=== PATIENT | male | born 1950 | race Caucasian/White ===

== ENCOUNTER 2022-03-21 12:43 | Observation (INO) | payer MEDICARE, SELFPAY ==
[2022-03-21] VITALS (9 sets, daily range): BP systolic 126–141; BP diastolic 63–92; PULSE 58–92; RESP 16–18; TEMP 36–36.4; O2SAT 96–100; BMI 29.5; BMI 25.9; BMI 27.2
--- NOTE | 2022-03-21 13:04 | NURSING ---
STROKE ALERT CALLED
--- NOTE | 2022-03-21 13:07 | CT_ITS ---
We are attempting to reach an attending provider to discuss findings. An addendum with communication details will be sent when the communication is complete. STUDY: CT HEAD STROKE PROTOCOL W/O CONTRAST INJECTION REASON FOR EXAM: Male, 71 years old. Neuro deficit, acute, stroke suspected RADIATION DOSAGE (If Supplied By Facility): CTDIvol = ( ) mGy, DLP = ( ) mGycm TECHNIQUE: Transaxial CT imaging of the brain was performed without administration of intravenous contrast material. Individualized dose optimization techniques were used for this CT. COMPARISON: No relevant priors. FINDINGS: Normal soft tissue structures. Normal calvarium. There is mild cerebral atrophy with widening of the extra-axial spaces and ventricular dilatation. There are areas of decreased attenuation within the white matter tracts of the supratentorial brain, consistent with microvascular disease changes. Normal basal ganglia and thalami. Normal brainstem. Normal cerebellum. There is no intracranial hemorrhage. There are no findings of an acute ischemic infarction. Normal visualized paranasal sinuses. ASPECT score: CT/STROKE Brain/Head without Cont IMPRESSION: Chronic involutional changes of the brain. Electronically Signed: Wyatt Lynch MD at 13:22 EDT ,
--- NOTE | 2022-03-21 13:07 | EKG12_ITS ---
Test Reason : dizziness Blood Pressure : / mmHG Vent. Rate : 080 BPM Atrial Rate : 080 BPM P-R Int : 170 ms QRS Dur : 080 ms QT Int : 368 ms P-R-T Axes : 053 -06 036 degrees QTc Int : 424 ms Normal sinus rhythm Nonspecific ST abnormality Abnormal ECG Confirmed by ALLISON ANDERSON, ELVIE ([id number]), marketing editor FEROZ GAN ([id number]) on 03/23/2022 9:39:45 AM Referred By: Domingo Confirmed By:ELVIE COOPER MD
--- NOTE | 2022-03-21 13:08 | CT_ITS ---
We are attempting to reach an attending provider to discuss findings. An addendum with communication details will be sent when the communication is complete. STUDY: CTA HEAD AND NECK WITH CONTRAST REASON FOR EXAM: Male, 71 years old. Neuro deficit, acute, stroke suspected RADIATION DOSAGE (If Supplied By Facility): CTDIvol = ( 26.29 ) mGy, DLP = ( 749.46 ) mGycm TECHNIQUE: CT angiography was performed with a multi-detector CT scanner. Data acquisition was obtained from the skull base through the vertex following intravenous administration of IV 100mL [id number]-[id number]. MIP images were reconstructed from the axial data set. Post-processing of the angiographic images was performed, with multiplanar reformation and 3D reconstruction. Individualized dose optimization techniques were used for this CT. COMPARISON: No relevant priors. FINDINGS: Normal bilateral petrous carotid arteries. There is calcified plaque formation of the right cavernous carotid artery, without a cross-sectional luminal stenosis. There is calcified plaque formation of the left cavernous carotid artery, without a cross-sectional luminal stenosis. Normal right A1 segments of the anterior cerebral artery. Normal left A1 segments of the anterior cerebral artery. Normal intact anterior communicating artery (ACOM). Normal bilateral A2 segments of the anterior cerebral arteries. Normal right M1 and M2 segments of the middle cerebral arteries, with a normal M1 bifurcation. Normal left M1 and M2 segments of the middle cerebral arteries, with a normal M1 bifurcation. Normal right posterior communicating artery (PCOM). Normal left posterior communicating artery (PCOM). Normal bilateral vertebral arteries. Normal basilar artery with a normal basilar bifurcation. The visualized bilateral superior cerebellar (SCA) arteries are normal. Normal bilateral P1, P2 and visualized P3 segments of the posterior cerebral arteries. There is no demonstrated aneurysm of the [place]. There is no demonstrated abnormality of the visualized brain. AORTIC ARCH: There is a bovine origin of the great vessels arising from the aortic arch with a common origin of the brachiocephalic and left common carotid artery. Normal origin of the left subclavian artery. Normal origins of the brachiocephalic, left common carotid, and left subclavian arteries. RIGHT CAROTID ARTERIES: Normal right common carotid artery (CCA). There is mild atherosclerotic plaque formation with minimal narrowing of the right carotid bulb. There is mild atherosclerotic plaque formation of the origin of the right internal carotid artery with less than 50% cross sectional diameter stenosis. There is atherosclerotic tortuous elongation of the cervical portion of the right internal carotid artery. Normal origin of the right external carotid artery (ECA). LEFT CAROTID ARTERIES: Normal left common carotid artery (CCA). Normal left common carotid bulb. Normal origin of the left internal carotid (ICA) artery without a hemodynamically significant stenosis. There is atherosclerotic tortuous elongation of the cervical portion of the left internal carotid artery. Normal origin of the left external carotid artery (ECA). VERTEBRAL ARTERIES: Normal bilateral vertebral arteries. CT/STROKE CTA Head AND Neck W/Con IMPRESSION: 1. Normal CTA Head with contrast. 2. Mild (40%) right carotid stenosis. 3. The left carotid stenosis. 4. Patent vertebral arteries bilaterally. 5. Bovine arch. Electronically Signed: Wyatt Lynch MD at 14:05 EDT ,
[2022-03-21 13:10] LABS: Bedside Glucose 125 mg/dL (74-106)
--- NOTE | 2022-03-21 13:11 | ED.VIS.STROK ---
HPI History of Present Illness Chief Complaint: Dizziness Detail of Chief Complaint: Vertigo, nausea vomiting and photophobia Informant: patient and friend Onset/Context/Timing Onset: Hours (Onset approxi-1/2-hour prior to presentation, 1230) Context: Sudden Onset Timing: Continuous Quality and Location: Positive for Difficulty with Ambulation Onset: 1230 Current Severity: Moderate Maximum Severity: Severe Worsened by: Photophobia Relieved by: Nothing Associated Symptoms Associated Symptoms: Positive for Headache, Nausea and Vomiting; Negative for Chest Pain Narrative Narrative: Patient is a 71-year-old man who presents with abrupt onset of vertigo. He became diaphoretic. He had nausea and vomiting. It is not positional. He denies double vision or loss of vision. He states his vision is not normal. He was golfing when this occurred. He did have 2 drinks. He states he normally has 2 drinks while golfing. He does report mild headache. He states he has difficulty walking and cannot walk a straight line. He does have history of hypertension. He denies history of TIA or CVA. He denies chest pain or shortness of breath. He denies any other symptoms. There is no recent trauma. Prior similar symptoms: No Recent Illness/Hospitalization: No PFSH PFSH Home Medications lisinopril 10 mg tablet 10 mg PO DAILY 03/21/22 [History Last Taken Unknown] Allergy/AdvReac Type Severity Reaction Status Date / Time No Known Allergies Allergy Verified 03/21/22 12:45 Social History (Updated 03/21/22 @ 13:[address] Rob [address] MD) household members: other Smoking Status: Never smoker alcohol intake: current substance use type: does not use ROS ROS ED Constitutional Constitutional ED: Denies chills, fever(s), subjective or sweats Eyes Eyes: Reports change in vision and other Details: He does complain of photophobia. ; Denies blurry vision or diplopia ENT ENT ED: Reports other Details: He denies ringing in his ears. ; Denies ear pain, rhinorrhea or sore throat Cardiovascular Cardiovascular: Denies chest pain or palpitations Respiratory/Chest Respiratory/Chest: Denies cough, dyspnea or dyspnea on exertion Gastrointestinal Gastrointestinal: Reports nausea and vomiting; Denies abdominal pain, diarrhea or melena Genitourinary Genitourinary ED: Denies dysuria, hematuria or urinary frequency Musculoskeletal Musculoskeletal: Denies arthralgias, back pain, myalgias or neck pain Integumentary Denies Abrasions or rash Neurologic Neurologic: Reports headache(s) and other Details: Difficulty walking and vertigo ; Denies paresthesias or weakness Psychiatric Psychiatric: Denies anxiety or depression Endocrine Endocrinology: Denies polydipsia, polyphagia or polyuria Hematologic/Lymphatic Hematologic/Lymphatic: Denies easy bleeding or easy bruising EXAM Physical Exam Const Vital Signs: 03/21/22 12:45 03/21/22 12:52 03/21/22 13:07 Temperature 96.8 F L Temperature Source Temporal Pulse Rate 92 Respiratory Rate 18 Respiratory Effort Short of Breath Respiratory Pattern Tachypnea Blood Pressure 137/92 H Blood Pressure Mean 107 Pulse Ox 96 Oxygen Delivery Method Room Air Room Air Positive well nourished and well developed Constitutional Narrative: Patient is diaphoretic. He does not appear well. He does appear pale. General Appearance ED: well developed HEENT Reports TM's clear and moist mucous membranes atraumatic and trauma Tympanic Membrane ED: Yes TM's clear Eyes PERRL and EOMs intact bilaterally Eyes Narrative: There is nystagmus with central gaze. General Eye ED: Negative for pale conjunctiva or scleral icterus Neck no lymphadenopathy, supple and no JVD Neck Narrative: There is no carotid bruit. Chest Wall inspection of chest normal and palpation of chest normal Resp normal respiratory effort and clear to auscultation bilaterally Cardio no murmurs Rate: regular rate Rhythm: regular rhythm Heart Sounds: S1 normal and S2 normal GI normal to inspection, nondistended, normoactive bowel sounds, soft to palpation, non-tender, non-distended and no masses Back/Spine no CVA tenderness Cervical Spine: Negative for cervical spine tenderness Thoracic Spine / Upper Back: Negative for thoracic spinal tenderness Lumbar Spine / Lower Back: Negative for lumbar spinal tenderness Extremity normal to inspection Neuro oriented x3, CN's II-XII intact bilaterally and no sensory deficits noted [place] Coma Scale: document GCS findings Spontaneous Obeys Commands Oriented 15 Sensorium / Orientation: alert Speech: speech normal Gait (Neuro): Negative for normal gait Motor Exam: strength 5/5 throughout Psych mental status grossly normal Skin Skin Narrative: Patient peers pale and he is diaphoretic. General Skin Exam: Negative for jaundice Lesions: no lesions Rashes: no rashes STROKE Vital Signs/Narrative: Vital Signs Temp Pulse Resp BP Pulse Ox O2 Del Method 03/21/22 13:07 Room Air 03/21/22 12:45 96.8 F L 92 18 137/92 H 96 Room Air Inital Vital Signs reviewed: Yes NIHSS Initial: 1a Level of Consciousness: 0 1b LOC Questions (Score 2 if aphasic/stupor): 0 1c LOC Commands (Only score 1st attempt): 0 2 Best Gaze (If aphasic, use reflexive mvmts.): 0 3 Visual: 0 4 Facial Palsy: 0 5 Motor Arm Right (UN = amputation/fusion): 0 5 Motor Arm Left: 0 6 Motor Leg Right: 0 6 Motor Leg Left: 0 7 Limb ataxia (Only + if out of proportion): 0 8 Sensory (Aphasia/stupor=0 or 1, coma=2): 0 9 Best Language: 0 10 Dysarthria (mute, coma=2, intubated=UN): 0 11 Extinction and Inattention (only scored if +): 0 Total Score: 0 MDM MDM MDM Narrative Medical decision making narrative: With persistent vertigo for 30 minutes and the fact that is nonpositional need to evaluate for vertebrobasilar insufficiency, stroke or dissection. CT of the head with and without contrast was ordered as well as CT of the neck. Stroke order set was initiated. Lab Data Attestation: I reviewed the patient's lab results. Labs: Laboratory Results - last 24 hr 03/21/22 03/21/22 03/21/22 12:50 13:00 13:00 WBC 4.9 RBC 5.00 Hgb 16.4 Hct 45.2 MCV 90.4 MCH 32.8 H MCHC 36.3 H RDW Std Deviation 39.3 RDW Coeff of Mara 11.9 Plt Count 185 MPV 9.4 Immature Gran % (Auto) 0.200 Neut % (Auto) 64.8 Lymph % (Auto) 23.9 [place] % (Auto) 8.9 Eos % (Auto) 1.8 Baso % (Auto) 0.4 Absolute Neuts (auto) 3.2 Absolute Lymphs (auto) 1.18 Nucleated RBC % 0 PT 12.3 INR 0.9 APTT 27.9 Sodium Potassium Chloride Carbon Dioxide Anion Gap BUN Creatinine Estim Creat Clear Calc Est GFR (MDRD) Af Amer Est GFR (MDRD) Non-Af BUN/Creatinine Ratio Glucose Calcium Troponin I High Sens POC Glucose 125 H 03/21/22 13:00 WBC RBC Hgb Hct MCV MCH MCHC RDW Std Deviation RDW Coeff of Mara Plt Count MPV Immature Gran % (Auto) Neut % (Auto) Lymph % (Auto) [place] % (Auto) Eos % (Auto) Baso % (Auto) Absolute Neuts (auto) Absolute Lymphs (auto) Nucleated RBC % PT INR APTT Sodium 137 Potassium 4.0 Chloride 107 Carbon Dioxide 21.0 Anion Gap 9 BUN 13 Creatinine 0.81 Estim Creat Clear Calc 79.75 Est GFR (MDRD) Af Amer 120 Est GFR (MDRD) Non-Af 100 BUN/Creatinine Ratio 16.0 Glucose 118 H Calcium 9.5 Troponin I High Sens 4 POC Glucose Radiography Diagnostic Testing: Clinical Impression(s) from Imaging Studies Brain CT 03/21/22 13:07 IMPRESSION: Chronic involutional changes of the brain. Electronically Signed: Wyatt Lynch MD at 13:22 EDT , Discussed CT and CTA of head and neck with neurologist at [facility]. There is no acute pathology. Patient needs work-up for stroke. Neurologist from [facility] does not feel comfortable administering tPA. I agree since patient has a score of 0 for me and apparently a low score for the radiologist. Stroke Documentation Questions Stroke Team Activated: Yes Reviewed Inclusion/Exclusion criteria: Yes Was Patient considered for Endovascular Intervention?: No-CTA negative, determined not to be an endovascular candidate IV Alteplase (t-PA) Administered: No No contraindications for IV Alteplase (t-PA) administration.: Yes Alteplase (t-PA) risks, benefits, alternative discussed: No Critical Care Time Critical Care Time: Yes Critical care time (excluding procedures): 30-74 minutes (23), Including time spent: (History, physical, documentation, review of prior records), Discussing w/Patient &/or Family/Electronics Parts Sales Representative, Discussing w/Consultants (Radiologist and neurologist from [facility] and [facility] respectively) and Arranging Admission or Transfer (Dr. Cortes the hospitalist) Discharge Plan Triage Chief Complaint: Dizziness Other Complaint: Nausea/Vomiting ED Provider: Rob Lane Dx/Rx/DC Orders Clinical Impression: Vertigo, Nystagmus, History of primary hypertension Prescriptions: No Action lisinopril 10 mg Tablet 10 mg PO DAILY Primary Care Provider: NOT,DEFINED Referrals: NOT,DEFINED [Primary Care Provider] - Disposition Disposition: Acute Care Hospital [facility]
--- NOTE | 2022-03-21 13:14 | NURSING ---
NO OLD EKGS
[2022-03-21 13:15] LABS: Absolute Lymphocyte Count 1.18 X10^3/uL (0.83-4.51); Absolute Neutrophil Count 3.2 X10^3/uL (2.0-7.7); Basophil# 0.02 X10^3/uL; Basophil% 0.4 % (0-1); Eosinophil# 0.09 X10^3/uL; Eosinophils% 1.8 % (0-5); Hematocrit 45.2 % (40-54); Hemoglobin 16.4 g/dL (13.0-16.5); Lymphocyte # 1.18 X10^3/ul (0.83-4.51); Lymphocyte % 23.9 % (19-41); Mean Corp Hgb Conc 36.3 g/dL (32-36); Mean Corpuscular Hgb 32.8 pg (27.0-32.0); Mean Corpuscular Volume 90.4 fL (80-94); Mean Platelet Vol. 9.4 fl (6.2-12.0); Monocyte# 0.44 X10^3/uL; Monocyte% 8.9 % (0-10); NRBC Flagged by Analyzer 0 % (0-5); Neutrophil # 3.19 X10^3/uL (2.7-7.7); Neutrophil % 64.8 % (47-70); Platelet Count 185 K/mm3 (150-450); RBC Distribution Width CV 11.9 % (11.6-14.6); RBC Distribution Width SD 39.3 fl (35.1-43.9); White Blood Count 4.9 K/mm3 (4.4-11.0)
[2022-03-21 13:19] LABS: International Normalized Ratio 0.9; Prothrombin Time (Protime)PT. 12.3 SECONDS (11.7-14.9)
[2022-03-21 13:20] LABS: Partial Thromboplast Time 27.9 Seconds (24.1-36.2)
[2022-03-21] MEDS: Ondansetron 4 MG/2 ML Vial IV (13:22)
[2022-03-21 13:33] LABS: Anion Gap 9 (5-15); BUN 13 mg/dL (7-18); Calcium,Total 9.5 mg/dL (8.5-10.1); Chloride 107 mmol/L (98-107); Creatinine, Serum 0.81 mg/dL (0.70-1.30); EST Glomerular Filtration Rate 100 mL/min (>60); Est Glom Filt Rate - Afr Amer 120 mL/min (>60); Estimated Creatinine Clearance 79.75 ml/min; Glucose 118 mg/dL (74-106); Sodium Level 137 mmol/L (136-145); Troponin-I HS 4 pg/mL (3.0-78.0)
--- NOTE | 2022-03-21 13:49 | NURSING ---
PCU FRANCES VERTIGO, NYSTAGMUS, HX OF HYPERTENSION
--- NOTE | 2022-03-21 14:06 | ECHOD_ITS ---
Reason For Study: TIA/CVA Procedure This was a 2D Doppler, Color Flow transthoracic echocardiogram. The exam was of adequate technical quality. Exam performed portable in patient room. Left Ventricle Normal LV size. Apical false tendon noted. Left ventricular systolic function is normal. The estimated ejection fraction is 65 %. No evidence for diastolic dysfunction. No regional wall motion abnormalities noted. Right Ventricle Normal RV size. Normal systolic function. Atria Normal left atrium. Normal right atrium. No doppler evidence for ASD. Bubble contrast study negative for right to left interatrial shunt. Mitral Valve There is mild mitral annular calcification. Extension of the mitral annular calcification onto the base of the posterior mitral valve leaflet. Trivial mitral valve insufficiency. Tricuspid Valve Normal tricuspid valve. Trivial tricuspid valve insufficiency. Right ventricular systolic pressure estimated to be 24 mmHg. Aortic Valve Trisinus/trileaflet aortic valve. Moderate focal aortic valve calcification. Pulmonic Valve The pulmonic valve is not well visualized. Great Vessels Normal sized aortic root. Pericardium/Pleural No pericardial effusion. Medication Performed a rapid injection of agitated mix of 9 cc saline and 1cc air to assess for atrial septal defect. MMode/2D Measurements & Calculations LVIDd: 4.8 cm IVSd: 1.2 cm Ao root diam: 3.4 cm LVIDs: 2.5 cm LVPWd: 0.98 cm RVDd: 3.7 cm FS: 48.3 % LAV(MOD-sp2): 56.5 ml LVAd ap4: 23.6 cm2 LVAd ap2: 28.7 cm2 LVLd ap4: 7.0 cm LVLd ap2: 8.3 cm EDV(MOD-sp4): 64.5 ml EDV(MOD-sp2): 81.9 ml EDV(sp4-el): 67.3 ml EDV(sp2-el): 84.5 ml LVAs ap4: 13.9 cm2 LVAs ap2: 14.2 cm2 LVLs ap4: 6.8 cm LVLs ap2: 7.0 cm ESV(MOD-sp4): 25.0 ml ESV(MOD-sp2): 24.6 ml ESV(sp4-el): 24.1 ml ESV(sp2-el): 24.5 ml EF(MOD-sp4): 61.2 % EF(MOD-sp2): 70.0 % EF(sp4-el): 64.2 % SV(MOD-sp4): 39.5 ml SV(MOD-sp2): 57.3 ml SV(sp4-el): 43.2 ml LA A4 area: 19.0 cm2 LA dimension(2D): 4.9 cm RA A4 area: 14.8 cm2 Time Measurements MV dec time: 0.23 sec Doppler Measurements & Calculations MV E max king: 73.7 cm/sec Lat Peak E' King: 9.9 cm/sec Med Peak E' King: 6.9 cm/sec MV A max king: 75.9 cm/sec E/E' lat: 7.5 E/E' med: 10.7 MV E/A: 0.97 Ao V2 max: 158.4 cm/sec LV V1 max: 123.4 cm/sec MV dec slope: 317.7 cm/sec2 Ao max P.0 mmHg LV V1 max P.1 mmHg Ao V2 mean: 108.7 cm/sec LV V1 mean P.4 mmHg Ao mean P.4 mmHg LV V1 mean: 86.1 cm/sec Ao V2 VTI: 38.5 cm LV V1 VTI: 30.6 cm PA V2 max: 78.9 cm/sec TR max king: 228.1 cm/sec TR max P.1 mmHg ECHO/Echo Complete Interpretation Summary Left ventricular systolic function is normal. The estimated ejection fraction is 65 %. Apical false tendon noted. There is mild mitral annular calcification. Extension of the mitral annular calcification onto the base of the posterior mi tral valve leaflet. Trivial mitral valve insufficiency. Trivial tricuspid valve insufficiency. Moderate focal aortic valve calcification. Right ventricular systolic pressure estimated to be 24 mmHg. No evidence for diastolic dysfunction. Bubble contrast study negative for right to left interatrial shunt. Ordering Physician: Raven Cortes Performed By: Brittney Mcmanus RDCS
--- NOTE | 2022-03-21 14:06 | MRI_ITS ---
EXAM: MR HEAD WITHOUT INTRAVENOUS CONTRAST CLINICAL INDICATION: stroke TECHNIQUE: Multiplanar and multisequence MR images of the brain were obtained without intravenous contrast. This report was created using [employer] report generation technology. COMPARISON: Ct done earlier. FINDINGS: BRAIN AND EXTRA-AXIAL SPACES: Chronic involutional changes of the brain. No intra- or extra-axial hemorrhage. No evidence of acute infarct. No intracranial mass or mass effect. There is preservation of the funes/white matter interface. Posterior fossa structures are unremarkable. Ventricles are appropriate for age. No hydrocephalus. Basal cisterns are patent. SELLA: Unremarkable. Normal sella turcica, pituitary gland, infundibular stalk, optic chiasm and hypothalamus. AUDITORY SYSTEM: Unremarkable. The internal auditory canals are patent. BONES/JOINTS: Unremarkable. No discrete lytic or blastic abnormalities. SINUSES: Unremarkable as visualized. Clear. MASTOID AIR CELLS: Unremarkable as visualized. Clear. ORBITS: Unremarkable as visualized. Both globes, extraocular muscles, optic nerves and retrobulbar fat appear unremarkable. VASCULATURE: Unremarkable as visualized. Normal flow voids in the major intracranial circulation. MRI/Brain without Contrast IMPRESSION: Chronic involutional changes of the brain. Electronically Signed: Corbin Garber MD at 17:17 EDT ,
--- NOTE | 2022-03-21 14:10 | ED.RN ---
PT PLACED ON 2L NC AT THIS TIME DUE TO OXYGEN DESAT. O2 WENT DOWN TO 88% ON RA. PT O2 THEN RAISES TO 99% ON 2L
--- NOTE | 2022-03-21 14:21 | ED.RN ---
PT'S UPDATED AT THIS TIME OF ADMISSION AND ROOM NUMBER. WOULD LIKE TO BE CALLED WITH ANY UPDATES. IS ON OXYGEN AT ALL TIMES AND IS UNABLE TO COME TO HOSPITAL. PHANI [phone]
--- NOTE | 2022-03-21 15:29 | CHAPLAIN ---
Type of Pastoral Visit ___ Initial Visit ___ Follow-up Visit ___ On-call Visit ___ General Patient Visit ___ Spiritual Assessment ___ Family Conference ___ Bereavement _x__ Rapid Response ___ Code Blue ___ Other (describe below) Pastoral Care Referral From ___ Patient ___ Family ___ Nurse ___ Physician ___ Telecommunications Switch Technician ___ Chief Psychologist _x__ Other (describe below) Sacrament/Intervention ___ Active listening ___ Anointing ___ Congregational ___ Bereavement ___ Communion ___ Susu exploration ___ ___ Life review ___ Prayer ___ Reconciliation ___ Sacrament of Sick _x__ Supportive presence ___ Wedding _x__ Other (describe below) Pastoral Comments went to ED for this stroke alert; the patient was in CT scan; friend [place]; offered support to friend and friend gives some details about the event leading to hospital; friend stated that he did not need further support and just hope that friend/pt will be okay; friend was making phone calls
--- NOTE | 2022-03-21 15:48 | HP.PCM.HOS_ITS ---
HPI - General General Date of Admission: 03/21/22 Date of Service: 03/21/22 Chief Complaint: Vertigo HPI Narrative BOBBI GRIFFITH, is a 71 M who presented to the emergency department [facility] 03/21/2022 with a chief complaint of severe vertigo. The patient evidently was normal when he woke up this morning. He started golfing as he normally does on Monday morning at 830 this morning and was feeling well throughout his golf game. He reported he got to the and started having some dizziness. He did admit to 2 drinks during his golf game but states this is fairly typical for him. The dizziness persisted and he went and sat in the car with his friend for about 10 minutes and the dizziness continued to wors en so they brought him to the emergency department. He feels the dizziness probably started between 12 and 1230 based on when he was golfing. He had associated diaphoresis and severe nausea and vomiting. He states he vomited several times. He states he felt like this once previously when he had been stung by a bee but has no documented allergy to bee stings. He indicates he was not stung today however. Upon presentation emergency department his temperature was 96.8, pulse was 92, blood pressure was 137/92, respiratory rate is 18, oxygen saturation was 96% on room air. His CBC is overall unimpressive. Coags are normal. BMP is normal other than mild hyperglycemia with a glucose-nonfasting of 118. His troponin was 4. An ethyl alcohol level was obtained given his admission to alcohol use and it was 13. EKG showed normal sinus rhythm without any ST-T wave changes consistent with ischemia. CT of his brain showed chronic involutional changes but no signs of acute abnormality. CTA of the head and neck showed mild (40%) right carotid artery stenosis, no hemodynamic significant stenosis in the left carotid, patent vertebral arteries bilaterally. In the emergency department he was evaluated by stroke neurologist at [facility] and there was significant concern for vertebrobasilar insufficiency related stroke or dissection initially however dissection was ruled out with a CTA. Castillo mmendation was for admission and further work-up with MRI and stroke order set. At the time of my evaluation his vertiginous symptoms had resolved and his nausea and vomiting had abated. It sounds like he had vertiginous symptoms for approximately 2 to 3 hours in total. He did have significant nonpositional nystagmus on exam for the emergency department physician however it had resolved at the time of my evaluation. [facility] Medical History Hypertension Home Medications lisinopril 10 mg tablet 10 mg PO DAILY 03/21/22 [History Last Taken Unknown] Allergy/AdvReac Type Severity Reaction Status Date / Time No Known Allergies Allergy Verified 03/21/22 12:45 Family History Other CAD (coronary artery disease) Hypertension no surgical history Social History (Updated 03/21/22 @ 15:[address] Raven Cortes DO) household members: other Smoking Status: Never smoker alcohol intake: current alcohol intake frequency: 0-2 drinks per day Alcohol type: hard liquor substance use type: does not use ROS Constitutional Constitutional: Denies anorexia, change in weight, chills, fatigue, fever(s), malaise, night sweats, weakness or other Eyes Eyes: Denies blurry vision, change in eye color, change in vision, discharge from eye(s), double vision, erythema, eye pain, loss of vision or other ENT HEENT: Denies abnormal hearing, dysphagia, ear pain, epistaxis, headache(s), hearing loss, nasal congestion, nasal discharge, post nasal drip, sinus pressure, sore throat or other Cardiovascular Cardiovascular: Denies chest pain, claudication, dyspnea on exertion, edema, lightheadedness, orthopnea, palpitations, paroxysmal nocturnal dyspnea, rapid heart rate, syncope or other Respiratory/Chest Respiratory/Chest: Denies cough, dyspnea, excessive phlegm production, hemoptysis, productive cough, shortness of breath at rest, shortness of breath w ith exertion, wheezing or other Gastrointestinal Gastrointestinal: Reports nausea and vomiting; Denies abdominal pain, coffee ground emesis, constipation, diarrhea, dyspepsia, hematemesis, hematochezia, loose stools, melena or other Genitourinary Genitourinary: Denies burning urination, difficulty urinating, dysuria, hematuria, nocturia, urinary frequency, urinary hesitancy, urinary incontinence, urinary urgency or other Musculoskeletal Musculoskeletal: Denies arthralgias, back pain, joint pain, joint stiffness, joint swelling, myalgias, neck pain or other Neurologic Neurologic: Reports abnormal gait, disequilibrium and dizziness; Denies abnormal speech, confusion, focal weakness, headache(s), numbness, paresthesias, seizure- like activity, seizures, syncope, tingling, tremor(s) or other Psychiatric Psychiatric: Denies anxiety, depression, homicidal ideation, suicidal ideation or other Endocrine Endocrinology: Denies change in body appearance, cold intolerance, excessive sweating, heat intolerance, polydipsia, polyuria or other Hematologic/Lymphatic Hematologic/Lymphatic: Denies anemia, easy bleeding, easy bruising, lymphadenopathy or other Allergic/Immunologic Allergic/Immunologic: Denies rhinitis, hives, eczemia, asthma or other Vital Signs Vital Signs Vital Signs: 03/21/22 12:45 03/21/22 12:52 03/21/22 13:07 Temperature 96.8 F L Temperature Source Temporal Pulse Rate 92 Respiratory Rate 18 Respiratory Effort Short of Breath Respiratory Pattern Tachypnea Blood Pressure 137/92 H Blood Pressure Mean 107 Pulse Ox 96 Oxygen Delivery Method Room Air Room Air Oxygen Flow Rate (L/min) 03/21/22 13:46 03/21/22 13:43 Temperature 96.8 F L Temperature Source Temporal Pulse Rate 87 58 L Respiratory Rate 18 16 Respiratory Effort Respiratory Pattern Blood Pressure 137/92 H Blood Pressure Mean 107 Pulse Ox 96 99 Oxygen Delivery Method Room Air Nasal Cannula Oxygen Flow Rate (L/min) 2 Weight Weight: 78.9 kg Body Mass Index (BMI) 27.2 Physical Exam Const alert, oriented x3, no apparent distress, average body habitus, healthy appearing and well nourished Constitutional Narrative: Older white male lying in bed sleeping however awakens easily upon name by for my exam, appears comfortable nontoxic, dizziness has resolved at this time General Appearance: cooperative HEENT normocephalic, head/scalp atraumatic, hearing grossly normal bilaterally and moist oral mucous membranes HEENT Narrative: Dentition is poor, upper dentures in place, Mallampati is 2, no thrush Eyes PERRL, EOMs intact bilaterally and conjunctivae normal Eyes Narrative: No scleral icterus Neck no lymphadenopathy, supple, no JVD and no carotid bruits Neck Narrative: Trachea midline, no thyroid enlargement Resp normal respiratory effort, no retractions, no use of accessory muscles and clear to auscultation bilaterally Auscultation: Negative for crackles, rales, rhonchi or wheezes Cardio regular rate, regular rhythm, S1 normal heart sound, S2 normal heart sound, no murmurs, no rub, no gallops, no clicks and no JVD GI normal to inspection, nondistended, normoactive bowel sounds, soft to palpation, non-tender and non-distended; Negative for hepatosplenomegaly Extremity no clubbing, cyanosis or edema Skin no rashes or lesions noted, no wounds, skin turgor normal, no jaundice, no petechiae and no mottling Neuro oriented x3, CN's II-XII intact bilaterally, moves all extremities and no focal motor deficits Neuro Narrative: No nystagmus on exam, reflexes are 2+ Speech: speech normal Motor Exam: strength 5/5 throughout Psych affect normal Psych Narrative: Very pleasant and appropriately interactive Results Lab / Micro Data Result Diagrams: 03/21/22 13:00 03/21/22 13:00 Labs: Laboratory Results - last 24 hr 03/21/22 12:50: POC Glucose 125 H 03/21/22 13:00: WBC 4.9, RBC 5.00, Hgb 16.4, Hct 45.2, MCV 90.4, MCH 32.8 H, MCHC 36.3 H, RDW Std Deviation 39.3, RDW Coeff of Mara 11.9, Plt Count 185, MPV 9.4, Immature Gran % (Auto) 0.200, Neut % (Auto) 64.8, Lymph % (Auto) 23.9, [place] % (Auto) 8.9, Eos % (Auto) 1.8, Baso % (Auto) 0.4, Absolute Neuts (auto) 3.2, Absolute Lymphs (auto) 1.18, Nucleated RBC % 0 03/21/22 13:00: PT 12.3, INR 0.9, APTT 27.9 03/21/22 13:00: Sodium 137, Potassium 4.0, Chloride 107, Carbon Dioxide 21.0, Anion Gap 9, BUN 13, Creatinine 0.81, Estim Creat Clear Calc 79.75, Est GFR (MDRD) Af Amer 120, Est GFR (MDRD) Non-Af 100, BUN/Creatinine Ratio 16.0, G lucose 118 H, Calcium 9.5, Troponin I High Sens 4 03/21/22 13:00: Ethyl Alcohol 13.[address] 03/21/22 13:07 IMPRESSION: Chronic involutional changes of the brain. Electronically Signed: Bobbi Lynch MD at 13:22 EDT , Head/Neck CTA 03/21/22 13:08 IMPRESSION: 1. Normal CTA Head with contrast. 2. Mild (40%) right carotid stenosis. 3. The left carotid stenosis. 4. Patent vertebral arteries bilaterally. 5. Bovine arch. Electronically Signed: Bobbi Lynch MD at 14:05 EDT , ADDENDUM: 03/21/22 1415 IMPRESSION: 1. Normal CTA Head with contrast. 2. Mild (40%) right carotid stenosis. 3. The left carotid stenosis. 4. Patent vertebral arteries bilaterally. 5. Bovine arch. N.B. : The above Results were Read Back by Bobbi Lynch MD to Dr. Rob Lane MD, and understanding confirmed on 03/21/2022 14:08:53 (ET). Electronically Signed: Bobbi Lynch MD at 14:05 EDT , Assessment & Plan Assessment/Plan (1) Nystagmus: (2) Vertigo: PLAN: Plan Vertigo with nystagmus -Per discussion with emergency department physician who evaluated him while he was dizzy this was nonpositional in nature and quite severe -Concern is for vertebrobasilar issues -Start aspirin -Start statin -Check lipids -Hemoglobin A1c -Check MRI -Check echocardiogram -PT/OT consultation -As needed antiemetics available -We will hold home lisinopril to allow for some permissive hypertension -As needed antiemetic hypertensives available if needed -Vertigo is currently resolved at the time of my evaluation Hypertension -Hold home lisinopril to allow for permissive hypertension given concern for vertebrobasilar insufficiency -As needed antihypertensives available DVT prophylaxis -Lovenox subcu daily -SCDs CODE STATUS -Full code is verified with patient on admission Charges/Coding Visit Charges Inpatient E&M: 19692 Init Hosp L2
--- NOTE | 2022-03-21 16:15 | RAD_ITS ---
STUDY: X-RAY CHEST REASON FOR EXAM: Male, 71 years old. Neuro deficit, acute, stroke suspected TECHNIQUE: Single AP portable view of the chest. COMPARISON: None. FINDINGS: The lungs are clear and expanded. There is no demonstrated pleural abnormality. Normal size heart. Normal mediastinum and leslie. Normal visualized pulmonary arteries. Normal visualized aortic arch and descending thoracic aorta. Normal visualized thoracic spine. Normal visualized ribs, clavicles, and shoulders. There is no demonstrated abnormality of the visualized soft tissue structures of the upper abdomen. RAD/Chest 1 View IMPRESSION: Normal x-ray examination of the chest. Electronically Signed: Wyatt Lynch MD at 16:29 EDT ,
[2022-03-21] MEDS: 0.9% Saline Lock 10 ML Syringe IV (16:56)
[2022-03-21] MEDS: Lactated Ringers 1,000 ML 70 ML IV (16:56)
[2022-03-21] MEDS: Atorvastatin Calcium 80 MG Tablet PO (21:09)
[2022-03-22] VITALS (8 sets, daily range): BP systolic 120–160; BP diastolic 67–79; PULSE 56–81; RESP 16–18; TEMP 36.6–36.7; O2SAT 95–99; BMI 27.2
[2022-03-22 05:44] LABS: Absolute Lymphocyte Count 1.09 X10^3/uL (0.83-4.51); Absolute Neutrophil Count 2.8 X10^3/uL (2.0-7.7); Basophil# 0.03 X10^3/uL; Basophil% 0.7 % (0-1); Eosinophil# 0.13 X10^3/uL; Eosinophils% 2.9 % (0-5); Hemoglobin 14.3 g/dL (13.0-16.5); Lymphocyte # 1.09 X10^3/ul (0.83-4.51); Lymphocyte % 24.1 % (19-41); Mean Corp Hgb Conc 34.9 g/dL (32-36); Mean Corpuscular Hgb 32.8 pg (27.0-32.0); Mean Platelet Vol. 9.7 fl (6.2-12.0); Monocyte# 0.43 X10^3/uL; Monocyte% 9.5 % (0-10); NRBC Flagged by Analyzer 0 % (0-5); Neutrophil # 2.84 X10^3/uL (2.7-7.7); Neutrophil % 62.6 % (47-70); Platelet Count 163 K/mm3 (150-450); RBC Distribution Width CV 12.1 % (11.6-14.6); RBC Distribution Width SD 42.4 fl (35.1-43.9); Red Blood Count 4.36 M/mm3 (4.6-6.2); White Blood Count 4.5 K/mm3 (4.4-11.0)
[2022-03-22 06:12] LABS: ALB/GLOB Ratio 1.3 RATIO (0.9-2.4); AST(SGOT) 14 U/L (15-37); Alanine Aminotransfer ALT/SGPT 22 U/L (16-61); Albumin, Serum 3.3 g/dL (3.2-5.0); Alkaline Phosphatase 56 U/L (45-117); Anion Gap 4 (5-15); BUN 14 mg/dL (7-18); BUN/Creat Ratio 18.6 RATIO (10-20); Calcium,Total 8.1 mg/dL (8.5-10.1); Chloride 108 mmol/L (98-107); Cholesterol 133 mg/dL (200); Creatinine, Serum 0.75 mg/dL (0.70-1.30); EST Glomerular Filtration Rate 108 mL/min (>60); Est Glom Filt Rate - Afr Amer 131 mL/min (>60); Estimated Creatinine Clearance 62.43 ml/min; Globulin 2.6 g/dL (2.2-4.2); Glucose 97 mg/dL (74-106); High Density Lipoprotein 45 mg/dL; Potassium 4.2 mmol/L (3.5-5.1); Protein, Total 5.9 g/dL (6.4-8.2); Sodium Level 140 mmol/L (136-145); Thyroid Stim Hormone (TSH) 0.51 uIU/mL (0.358-3.74); Triglycerides 66 mg/dL; Very Low Density Lipoprotein 13 mg/dL (5-40)
[2022-03-22] MEDS: Lactated Ringers 1,000 ML 70 ML IV (06:19)
[2022-03-22 06:26] LABS: Phosphorus 2.9 mg/dL (2.5-4.9)
[2022-03-22] MEDS: Aspirin 81 MG TAB.CHEW PO (08:46)
--- NOTE | 2022-03-22 10:42 | DCINST_ITS ---
Discharge Instructions Diet Discharge Diet: 2000 mg Sodium Diet Activity Discharge Activity: Return to Normal Activity Weight Bearing Status: Weight bearing as tolerated Follow Up Care Test Results: Test results from this visit will be discussed in further detail at your follow- up appointment, if applicable. Discharge Plan Admission Admit Date/Time: 03/21/22 13:47 Primary Reason for Your Visit: Dizziness Attending Provider: Anika Sparks Primary Care Provider: Care Physician,No Primary Consulting Providers: Raven Cortes Instructions Additional Instructions / Restrictions: Continue to stay hydrated. Follow-up with your PCP within 2 weeks as scheduled. Discharge Orders/Prescriptions Prescriptions: Continued lisinopril 10 mg Tablet 10 mg PO DAILY Referrals / Follow Up: Care Physician,No Primary [Primary Care Provider] - In 1 Week NOT,DEFINED [Non-Staff] - Disposition Disposition (needs filled in before D/C Order can be placed): Home, Self Care
--- NOTE | 2022-03-22 10:45 | DS.PCM_ITS ---
Providers Date of Admission: 03/21/22 Primary Care Physician: Suzanne Primary Care Phys Reason For Visit: STROKE R/O Diagnosis Discharge Diagnosis (1) Nystagmus: Status: Acute Code(s): H55.00 - Unspecified nystagmus (2) Vertigo: Status: Acute Code(s): R42 - Dizziness and giddiness Medications at Discharge Home Medications lisinopril 10 mg tablet 10 mg PO DAILY 03/21/22 Hospital Course Operations None Procedures 2-D Echocardiogram Summary of Care Provided Minutes Spent on Discharge: 35 Hospital Course: 71-year-old male with past medical Hypertension who presented with complaints of severe vertigo at that started was patient was coughing. He stated that the sym ptoms happened before when he was stung by a bee. He had not been stung by bee. Patient admits to drinking 2 drinks during his golf game. The dizziness persisted and was brought to the emergency room. His vitals were stable in the emergency room. CT of the brain showed chronic involutional changes. CT of the head showed right mild 40% carotid artery stenosis. Patient was seen by telemetry neurologist at [facility] and was recommended to be admitted over concerns for possible vertebrobasilar insufficiency. Patient was admitted to the progressive care unit, monitored on telemetry with no acute events. His symptoms appear to have resolved at time of being admitted. MRI of the brain was negative. 2D echo showed EF of 65%, no diastolic dysfunction. Moderate focal aortic valve calcification seen. Patient was seen by PT and OT. He was recommended to keep yourself hydrated. Physical Exam Narrative Physical exam: General: Alert, Oriented x3, Cooperative, No apparent distress HEENT: Atraumatic Oral: Moist Mucosa Neck: Supple Lungs: Clear to auscultation Cardiovascular: HS I+II, regular, no murmurs Abdomen: Bowel Sounds Present, Soft, Non Tender Extremities: No edema Skin: No rashes, No breakdown Neurological: Grossly intact Psych/Mental Status: Appropriate Weight / BMI Weight Weight: 79.8 kg Body Mass Index (BMI) 27.2 ABG / Lab / Microbiology Data Result Diagrams: 03/22/22 05:02 03/22/22 05:02 Laboratory: Laboratory Results - last 24 hr 03/21/22 12:50: POC Glucose 125 H 03/21/22 13:00: WBC 4.9, RBC 5.00, Hgb 16.4, Hct 45.2, MCV 90.4, MCH 32.8 H, MCHC 36.3 H, RDW Std Deviation 39.3, RDW Coeff of Mara 11.9, Plt Count 185, MPV 9.4, Immature Gran % (Auto) 0.200, Neut % (Auto) 64.8, Lymph % (Auto) 23.9, Parker % (Auto) 8.9, Eos % (Auto) 1.8, Baso % (Auto) 0.4, Absolute Neuts (auto) 3.2, Absolute Lymphs (auto) 1.18, Nucleated RBC % 0 03/21/22 13:00: PT 12.3, INR 0.9, APTT 27.9 03/21/22 13:00: Sodium 137, Potassium 4.0, Chloride 107, Carbon Dioxide 21.0, Anion Gap 9, BUN 13, Creatinine 0.81, Estim Creat Clear Calc 79.75, Est GFR (MDRD) Af Amer 120, Est GFR (MDRD) Non-Af 100, BUN/Creatinine Ratio 16.0, Glucose 118 H, Calcium 9.5, Troponin I High Sens 4 03/21/22 13:00: Ethyl Alcohol 13.0 03/22/22 05:02: WBC 4.5, RBC 4.36 L, Hgb 14.3, Hct 41.0, MCV 94.0, MCH 32.8 H, MCHC 34.9, RDW Std Deviation 42.4, RDW Coeff of Mara 12.1, Plt Count 163, MPV 9.7, Immature Gran % (Auto) 0.200, Neut % (Auto) 62.6, Lymph % (Auto) 24.1, Parker % (Auto) 9.5, Eos % (Auto) 2.9, Baso % (Auto) 0.7, Absolute Neuts (auto) 2.8, Absolute Lymphs (auto) 1.09, Nucleated RBC % 0 03/22/22 05:02: Sodium 140, Potassium 4.2, Chloride 108 H, Carbon Dioxide 28.0, Anion Gap 4 L, BUN 14, Creatinine 0.75, Estim Creat Clear Calc 62.43, Est GFR (MDRD) Af Amer 131, Est GFR (MDRD) Non-Af 108, BUN/Creatinine Ratio 18.6, Glucose 97, Calcium 8.1 L, Magnesium 2.0, Total Bilirubin 0.40, AST 14 L, ALT 22, Alkaline Phosphatase 56, Total Protein 5.9 L, Albumin 3.3, Globulin 2.6, Albumin/Globulin Ratio 1.3, Triglycerides 66, Cholesterol 133, LDL Cholesterol 75, VLDL Cholesterol 13, HDL Cholesterol 45, TSH 0.51 03/22/22 05:02: Phosphorus 2.9 03/22/22 05:02: Hemoglobin A1c 5.0 Radiography Diagnostic Testing: Radiology Impression Brain CT 03/21/22 13:07 IMPRESSION: Chronic involutional changes of the brain. Electronically Signed: Wyatt Lynch MD at 13:22 EDT , Head/Neck CTA 03/21/22 13:08 IMPRESSION: 1. Normal CTA Head with contrast. 2. Mild (40%) right carotid stenosis. 3. The left carotid stenosis. 4. Patent vertebral arteries bilaterally. 5. Bovine arch. Electronically Signed: Wyatt Lynch MD at 14:05 EDT , ADDENDUM: 03/21/22 1415 IMPRESSION: 1. Normal CTA Head with contrast. 2. Mild (40%) right carotid stenosis. 3. The left carotid stenosis. 4. Patent vertebral arteries bilaterally. 5. Bovine arch. N.B. : The above Results were Read Back by Wyatt Lynch MD to Dr. Rob Lane MD, and understanding confirmed on 03/21/2022 14:08:53 (ET). Electronically Signed: Wyatt Lynch MD at 14:05 EDT , Brain MRI 03/21/22 14:06 IMPRESSION: Chronic involutional changes of the brain. Electronically Signed: Corbin Garber MD at 17:17 EDT , Echocardiogram 03/21/22 14:06 Interpretation Summary Left ventricular systolic function is normal. The estimated ejection fraction is 65 %. Apical false tendon noted. There is mild mitral annular calcification. Extension of the mitral annular calcification onto the base of the posterior mi tral valve leaflet. Trivial mitral valve insufficiency. Trivial tricuspid valve insufficiency. Moderate focal aortic valve calcification. Right ventricular systolic pressure estimated to be 24 mmHg. No evidence for diastolic dysfunction. Bubble contrast study negative for right to left interatrial shunt. Ordering Physician: Raven Cortes Performed By: Brittney Mcmanus RDCS Chest X-Ray 03/21/22 16:15 IMPRESSION: Normal x-ray examination of the chest. Electronically Signed: Wyatt Lynch MD at 16:29 EDT , D/C Instructions Discharge Diet: No restrictions Meaningful Use Info Meaningful Use Diagnoses (Choose all that apply): None applicable Discharge Plan Admission Admit Date/Time: 03/21/22 13:47 Primary Reason for Your Visit: Dizziness Attending Provider: Anika Sparks Primary Care Provider: Jm Solo Primary Consulting Providers: Raven Cortes Instructions Additional Instructions / Restrictions: Continue to stay hydrated. Follow-up with your PCP within 2 weeks as scheduled. Discharge Orders/Prescriptions Prescriptions: Continued lisinopril 10 mg Tablet 10 mg PO DAILY Referrals / Follow Up: Care Physician,No Primary [Non-Staff] - In 1 Week NOT,DEFINED [Non-Staff] - Disposition Disposition (needs filled in before D/C Order can be placed): Home, Self Care Charges/Coding Visit Charges Inpatient E&M: 62567 Disch Hosp
--- NOTE | 2022-03-22 11:00 | CASEMGMT ---
RN LISE Face to Face with patient for initial transition planning/care coordination assessment. RN CM introduced self and role at [facility]. Patient lying in bed, alert and oriented. Patient willing to participate in assessment and is able to answer all questions appropriately. Care providers, pharmacy, and demographics verified. Patient wishes to discharge home, denies need for home health at this time. Patient states he has no further needs or concerns at this time. CM to follow for discharge planning needs that may arise. PCP: Patient follow with [facility] at [facility] in [place] Specialists: none Preferred Pharmacy: [facility]; [facility] retail at discharge. Insurance: [facility] Prescription Benefit: yes Living Will/HPOA: none LNOK: Living Arrangements: Patient lives with in a single story home with 3 steps and railing to enter the home. Patient states he is independent at home. Transportation: self, DME/HHC: Patient states he has grab bars at home. No previous HHC or SNF Disposition Plan: Patient to discharge home with family support and follow-up plans in place. Adrienne ORO, RN, CM
--- NOTE | 2022-03-22 11:24 | CASEMGMT ---
Therapy states pt back to normal and no further needs. Pt voices no further questions/concerns/needs. Catracho BONDS CM
--- NOTE | 2022-03-22 11:39 | PHA.DC.MR ---
Pharmacy Service has performed discharge medication reconciliation for this patient. The patient's discharge medication list was reviewed for discrepancies and discrepancies were resolved. Home Medications lisinopril 10 mg tablet 10 mg PO DAILY 03/21/22
--- NOTE | 2022-03-22 12:11 | CASEMGMT ---
SW did not complete a PHQ9 as per physician documentation patient did not have a Stroke or TIA. Qiana Pacheco CALL CENTER RECRUITERAvtar MORENO
== END 2022-03-22 14:50 | disposition home or self-care (01) | DRG 123 ==
LOC: ED 13:44 → PCU 14:18
PROVIDERS: Admitting Provider Internal Medicine; Emergency Provider Emergency Medicine; Visit Provider Internal Medicine
DX: H55.00 Unspecified nystagmus (principal); I10 Essential (primary) hypertension; I65.23 Occlusion and stenosis of bilateral carotid arteries; R42 Dizziness and giddiness; Z79.899 Other long term (current) drug therapy
CPT/HCPCS: 36415; 70450; 70496; 70498; 70551; 71045; 80048; 80053; 80061; 82077; 82962; 83036; 83735; 84100; 84443; 84484; 85025; 85610; 85730; 93005; 93306; 94762; 96361; 96374; 97161; 97165; 99218; 99251; 99283; J7120; Q9967; A4216; G0378; G0463; J2405